=== PATIENT | female | born 1995 | race Caucasian/White ===

== ENCOUNTER 2020-07-06 19:12 | Emergency (ER) | payer BC ==
[~2020-07-06] VITALS: Ht 167.6 cm; Wt 59.0 kg
[2020-07-06] MEDS ORDERED: PREDNISONE 20MG TABLET PO SCH (21:00)
[2020-07-06] MEDS ORDERED: DIPHENHYDRAMINE 25MG CAPSULE PO ONE (21:00)
[2020-07-06] MEDS ORDERED: FAMOTIDINE 20MG TABLET PO ONE (22:00)
[2020-07-06] MEDS ORDERED: DIPHENHYDRAMINE 50MG/ML VIAL IV ONE (22:00)
[2020-07-06 22:06] VITALS: BP 134/75
== END 2020-07-06 22:07 | disposition home or self-care (01) ==
LOC: ER 19:12
DX: R20.0 Anesthesia of skin (principal); G89.29 Other chronic pain; M54.2 Cervicalgia; T39.395A Adverse effect of other nonsteroidal anti-inflammatory drugs [NSAID], initial encounter; Y92.89 Other specified places as the place of occurrence of the external cause; Z87.828 Personal history of other (healed) physical injury and trauma
CPT/HCPCS: 99283; J7512; Q0163